=== PATIENT | male | born 1970 | race Caucasian/White ===

== ENCOUNTER 2018-08-29 00:50 | Emergency (ER) | payer SELFPAY ==
[2018-08-29 00:51] VITALS: BMI 39.8
[2018-08-29] MEDS ORDERED: Sodium Chloride 0.9% 2,000 ML IV STA (01:16)
[2018-08-29 01:54] LABS: BASO % 0.2 % (0.0-2.0); EOS % 0.3 % (0.0-4.0); HEMOGLOBIN 14.5 g/dL (12.0-18.0); LYMPH # 0.9 K/uL (1.0-4.3); LYMPH % 8.4 % (20.0-40.0); MEAN CORPUSCULAR HGB CONC 33.4 g/dL (33.0-37.0); MEAN PLATELET VOLUME 7.9 fl (7.2-11.7); MONO # 0.5 K/uL (0.0-0.8); MONO % 4.5 % (0.0-10.0); NEUT # 9.4 K/uL (1.8-7.0); NEUT % 86.6 % (50.0-75.0); PLATELET COUNT 183 K/uL (130-400); RBC 5.17 Mil/uL (4.40-5.90); RED CELL DISTRIBUTION WIDTH 15.7 % (11.5-14.5); WHITE BLOOD COUNT 10.9 K/uL (4.8-10.8)
[2018-08-29 01:57] LABS: VENOUS BLOOD GAS BASE EXCESS 2.2 mmol/L (0.0-2.0); VENOUS BLOOD GAS PCO2 46 mmHg (40-60); VENOUS BLOOD GAS PO2 28 mm/Hg (30-55); VENOUS BLOOD PH 7.39 (7.32-7.43)
[2018-08-29 02:01] LABS: ALB/GLOB RATIO 1.4 (1.0-2.1); ALBUMIN 4.7 g/dL (3.5-5.0); ALT/SGPT 77 U/L (21-72); AST/SGOT 46 U/L (17-59); BLOOD UREA NITROGEN 20 mg/dl (9-20); CALCIUM 8.9 mg/dL (8.4-10.2); GFR NON-AFRICAN AMERICAN > 60
--- NOTE | 2018-08-29 02:24 | ED PDOC ---
HPI: Chest Pain Time Seen by Provider: 08/29/18 01:09 Chief Complaint (Nursing): Chest Pain Chief Complaint (Provider): Chest Pain History Per: Patient History/Exam Limitations: no limitations Onset/Duration Of Symptoms: Days Current Symptoms Are (Timing): Still Present Additional Complaint(s): 48 y/o male with a PMHx of Atrial Fibrillation, HTN, Hypercholesterolemia and Pre-DM presents to the ED for evaluation of chills, myalgia, joint pains, and chest pressure associated with palpitations. On arrival, patient is febrile. Prior to arrival, patient was unaware that he had a fever. Patient denies sick contacts, recent travel, cough, sore throat, abdominal pain, nausea, vomiting and diarrhea. PMD: Dr. Wan Past Medical History Reviewed: Historical Data, Nursing Documentation, Vital Signs Vital Signs: Last Vital Signs Temp 100.6 F H 08/29/18 01:39 Pulse 108 H 08/29/18 01:04 Resp 19 08/29/18 01:04 BP 145/84 08/29/18 01:04 Pulse Ox 96 08/29/18 01:04 Primary Care Provider: Non [facility] Provider, - Medical History PMH: Atrial Fibrillation, Cardia Arrhythmia (aFIB), Diabetes (pre), HTN, Hypercholesterolemia, Sickle Cell Disease (sickle cell trait) Denies: Depression, Chronic Kidney Disease - Surgical History Surgical History: No Surg Hx - Family History Family History: States: Unknown Family Hx - Immunization History Hx Tetanus Toxoid Vaccination: No Hx Influenza Vaccination: No Hx Pneumococcal Vaccination: No - Home Medications Home Medications: Ambulatory Orders Medication Instructions Recorded Aspirin [Aspir 81] 81 mg PO DAILY 02/05/12 Apixaban [Eliquis] 5 mg PO BID #30 tab 05/03/17 Losartan [Cozaar] 100 mg PO DAILY #30 tab 05/03/17 [id number] Ethyl Esters 1 GM 2 gm PO BID #120 sgl 05/03/17 [Lovaza] Pantoprazole [Protonix EC Tab] 20 mg PO 0600,1600 #30 ect 05/03/17 Ursodiol [Actigall] 300 mg PO BID #60 cap 05/03/17 diltiaZEM CD [Cardizem CD] 120 mg PO DAILY #30 c24 05/03/17 - Allergies Allergies/Adverse Reactions: Allergies Allergy/AdvReac Type Severity Reaction Status Date / Time No Known Allergies Allergy Verified 08/29/18 01:06 Review of Systems ROS Statement: Except As Marked, All Systems Reviewed And Found Negative Constitutional: Positive for: Fever, Chills, Other (myalgia, joint pain) ENT: Negative for: Throat Pain Respiratory: Negative for: Cough Gastrointestinal: Negative for: Nausea, Vomiting, Abdominal Pain, Diarrhea Physical Exam - Reviewed Nursing Documentation Reviewed: Yes Vital Signs Reviewed: Yes - Physical Exam Appears: Positive for: No Acute Distress Head Exam: Positive for: ATRAUMATIC, NORMOCEPHALIC Skin: Positive for: Normal Color, Warm, Dry Eye Exam: Positive for: Normal appearance, EOMI, PERRL ENT: Positive for: Normal ENT Inspection Neck: Positive for: Normal, Painless ROM, Supple Cardiovascular/Chest: Positive for: Tachycardia (with regular rhythm) Respiratory: Positive for: Normal Breath Sounds. Negative for: Respiratory Distress Gastrointestinal/Abdominal: Positive for: Other (obese abdomen) Extremity: Positive for: Normal ROM Neurological/Psych: Positive for: Awake, Alert, Symmetric/Intact Strength (x3) - Laboratory Results Result Diagrams: 08/29/18 01:35 08/29/18 01:35 Lab Results: pO2 28 mm/Hg (30-55) L 08/29/18 01:53 VBG pH 7.39 (7.32-7.43) 08/29/18 01:53 VBG pCO2 46 mmHg (40-60) 08/29/18 01:53 VBG HCO3 25.4 mmol/L 08/29/18 01:53 VBG Total CO2 29.2 mmol/L (22-28) H 08/29/18 01:53 VBG O2 Sat (Calc) 56.8 % (40-65) 08/29/18 01:53 VBG Base Excess 2.2 mmol/L (0.0-2.0) H 08/29/18 01:53 VBG Potassium 3.8 mmol/L (3.6-5.2) 08/29/18 01:53 Sodium 138.0 mmol/L (132-148) 08/29/18 01:53 Chloride 102.0 mmol/L (98-107) 08/29/18 01:53 Glucose 148 mg/dL (75-110) H 08/29/18 01:53 Lactate 2.9 mmol/L (0.7-2.1) H 08/29/18 01:53 FiO2 21.0 % 08/29/18 01:53 Total Bilirubin 1.2 mg/dl (0.2-1.3) 08/29/18 01:35 AST 46 U/L (17-59) 08/29/18 01:35 ALT 77 U/L (21-72) H 08/29/18 01:35 Alkaline Phosphatase 94 U/L (38-126) 08/29/18 01:35 Total Protein 8.1 G/DL (6.3-8.2) 08/29/18 01:35 Albumin 4.7 g/dL (3.5-5.0) 08/29/18 01:35 Globulin 3.4 gm/dL (2.2-3.9) 08/29/18 01:35 Albumin/Globulin Ratio 1.4 (1.0-2.1) 08/29/18 01:35 - ECG O2 Sat by Pulse Oximetry: 96 (RA) Pulse Ox Interpretation: Normal Medical Decision Making Medical Decision Making: Time: 0116 A/P: 48 y/o male presenting with a fever of unspecified source. -- Will evaluate for sepsis -- VBG -- CMP -- CBC with Differentials -- CXR Two Views -- Sodium Chloride IV 2000 mls/hr -- Toradol 30 mg IVP -- Tylenol 650 mg PO -- Influenza A B 330 --Patient is feeling much better, no longer febrile --Advised plenty of fluids and rest --Well appearing upon discharge Scribe Attestation: Documented by Brad Sepulveda, acting as a scribe Adrien Germain MD. Provider Scribe Attestation: All medical record entries made by the Scribe were at my direction and personally dictated by me. I have reviewed the chart and agree that the record accurately reflects my personal performance of the history, physical exam, medical decision making, and the department course for this patient. I have also personally directed, reviewed, and agree with the discharge instructions and disposition. Disposition - Clinical Impression Clinical Impression: Viral illness - Patient ED Disposition Is Patient to be Admitted: No Counseled Patient/Family Regarding: Studies Performed, Diagnosis, Need For Followup - Disposition Referrals: Akshat Alonso MD [Staff Provider] - Disposition: Routine/Home Disposition Time: 03:30 Condition: IMPROVED Instructions: Flu, Adult (DC) Forms: [facility] (Portuguese)
[2018-08-29 03:38] VITALS: RESP 16
[2018-08-29 03:45] LABS: ANISOCYTOSIS SLIGHT; BANDS 2 % (0-2); EOSINOPHIL 1 % (0-7); LYMPHOCYTE 9 % (20-50); MONOCYTE 5 % (0-10); NEUTROPHIL 83 % (42-75); OVALOCYTES SLIGHT; PLATELET ESTIMATE NORMAL (NORMAL); SPHEROCYTES SLIGHT; TOTAL CELLS COUNTED 100
[2018-08-29 04:26] VITALS: BP 120/73; PULSE 95; TEMP 98.1
[2018-08-29 05:33] VITALS: O2SAT 96
--- NOTE | 2018-08-29 08:46 | RAD ---
Date of service: 08/29/2018 HISTORY: fever, cp COMPARISON: Chest radiographs 03/13/2009. TECHNIQUE: Chest PA and lateral views FINDINGS: LUNGS: No active pulmonary disease. PLEURA: No significant pleural effusion identified. No pneumothorax apparent. CARDIOVASCULAR: No aortic atherosclerotic calcification present. Normal cardiac size. No pulmonary vascular congestion. OSSEOUS STRUCTURES: No significant abnormalities. VISUALIZED UPPER ABDOMEN: Mammilated right hemidiaphragm. OTHER FINDINGS: None. IMPRESSION: No significant interval cardiopulmonary disease appreciable.
== END 2018-08-29 04:31 | disposition home or self-care (01) ==
LOC: H.ER 00:50
DX: B34.9 Viral infection, unspecified (principal); I10 Essential (primary) hypertension; D57.3 Sickle-cell trait; Z79.899 Other long term (current) drug therapy
CPT/HCPCS: 71046; 80053; 82803; 84484; 85025; 87804; 96361; 96374; 99285; J1885; J7030

== ENCOUNTER 2018-09-18 07:49 | Observation (INO) | payer MEDICAID, OTHER ==
[2018-09-18 07:50] VITALS: BMI 39.8
--- NOTE | 2018-09-18 09:02 | ED PDOC ---
HPI: Chest Pain Time Seen by Provider: 09/18/18 08:02 Chief Complaint (Nursing): Chest Pain Chief Complaint (Provider): Chest Pain History Per: Patient History/Exam Limitations: no limitations Onset/Duration Of Symptoms: Days (x3) Current Symptoms Are (Timing): Still Present Additional Complaint(s): Patient is a 48 y/o male with an extensive PMHx including atrial fibrillation who presents to the ED for evaluation of worsening chest tightness for the past three days. Patient claims he has been coughing and wheezing a lot so he has been taking Cipro and using an inhaler with minimal relief. Furthermore, patient complains of sweats associated with cough. Patient was told by primary to stop taking Eliquis and to continue taking Cardizem for atrial fibrillation, however, patient indicated he has not been doing so. Patient denies abdominal pain. PCP: Dr. Akshat Alonso Past Medical History Reviewed: Historical Data, Nursing Documentation, Vital Signs Vital Signs: Last Vital Signs Temp 98.4 F 09/18/18 07:59 Pulse 82 09/18/18 07:59 Resp 18 09/18/18 07:59 BP 157/82 H 09/18/18 07:59 Pulse Ox 96 09/18/18 07:59 Primary Care Provider: Akshat Alonso - Medical History PMH: Atrial Fibrillation, Cardia Arrhythmia (aFIB), Diabetes (pre), Gastritis, HTN, Hypercholesterolemia, Sickle Cell Disease (sickle cell trait) Denies: Depression, Chronic Kidney Disease - Surgical History Surgical History: Other surgeries: hernia repair - Family History Family History: States: Unknown Family Hx - Social History Current smoker - smoking cessation education provided: No Ex-Smoker (has not smoked in the last 12 months): No - Immunization History Hx Tetanus Toxoid Vaccination: No Hx Influenza Vaccination: No Hx Pneumococcal Vaccination: No - Home Medications Home Medications: Ambulatory Orders Medication Instructions Recorded Aspirin [Aspirin EC] 325 mg PO DAILY 09/18/18 - Allergies Allergies/Adverse Reactions: Allergies Allergy/AdvReac Type Severity Reaction Status Date / Time No Known Allergies Allergy Verified 08/29/18 01:06 Review of Systems ROS Statement: Except As Marked, All Systems Reviewed And Found Negative Constitutional: Positive for: Sweats Cardiovascular: Positive for: Chest Pain (tightness), Other (atrial fibrillation) Respiratory: Positive for: Cough, Wheezing Gastrointestinal: Negative for: Abdominal Pain Physical Exam - Reviewed Nursing Documentation Reviewed: Yes Vital Signs Reviewed: Yes - Physical Exam Appears: Positive for: No Acute Distress Head Exam: Positive for: ATRAUMATIC, NORMAL INSPECTION, NORMOCEPHALIC Skin: Positive for: Normal Color, Warm, DRY Eye Exam: Positive for: EOMI, Normal appearance, PERRL Neck: Positive for: Normal, Painless ROM, Supple Cardiovascular/Chest: Positive for: Tachycardia, Other (atrial fibrillation) Respiratory: Positive for: Normal Breath Sounds. Negative for: Wheezing, Respiratory Distress Gastrointestinal/Abdominal: Positive for: Normal Exam, Soft. Negative for: Tenderness Back: Positive for: Normal Inspection. Negative for: L CVA Tenderness, R CVA Tenderness Extremity: Positive for: Normal ROM. Negative for: Pedal Edema, Deformity Neurological/Psych: Positive for: Awake, Alert, Oriented (x3) - Laboratory Results Result Diagrams: 09/18/18 08:53 09/18/18 08:53 - ECG ECG Rhythm: Positive for: Normal QRS, Atrial Fibrillation (with RVR). Negative for: ST/T Changes Rate: 121 O2 Sat by Pulse Oximetry: 96 (RA) Pulse Ox Interpretation: Normal Medical Decision Making Medical Decision Making: Time: 833 Impression: Chest Tightness DDx includes but not limited to CHF exacerbation and atrial fibrillation with RVR; r/o PNA. Plan: EKG BNP BMP Troponin I CBC PTT Prothrombin Time CXR Cardizem 20 mg IVP Blade Grinder IV Insertion Time: 957 FINDINGS: LUNGS: Clear. PLEURA: No pneumothorax or pleural fluid seen. CARDIOVASCULAR: No aortic atherosclerotic calcification present. Normal. OSSEOUS STRUCTURES: No significant abnormalities. VISUALIZED UPPER ABDOMEN: Normal. OTHER FINDINGS: None. IMPRESSION: No active disease. ------ Scribe Attestation: Documented by Dalton Nuñez, acting as a scribe Jesus Montesinos MD. Provider Scribe Attestation: All medical record entries made by the Dionicio were at my direction and personally dictated by me. I have reviewed the chart and agree that the record accurately reflects my personal performance of the history, physical exam, medical decision making, and the department course for this patient. I have also personally directed, reviewed, and agree with the discharge instructions and disposition. Disposition - Disposition
[2018-09-18 09:08] LABS: PROTHROMBIN TIME 11.3 Seconds (9.8-13.1)
[2018-09-18 09:11] LABS: PARTIAL THROMBOPLASTIN TIME 31.9 Seconds (25.6-37.1)
[2018-09-18 09:16] LABS: BASO % 0.5 % (0.0-2.0); EOS # 0.3 K/uL (0.0-0.7); EOS % 2.9 % (0.0-4.0); LYMPH # 2.8 K/uL (1.0-4.3); LYMPH % 29.1 % (20.0-40.0); MEAN CELL VOLUME 83.5 fl (80.0-94.0); MEAN CORPUSCULAR HEMOGLOBIN 28.5 pg (27.0-31.0); MEAN CORPUSCULAR HGB CONC 34.1 g/dL (33.0-37.0); MEAN PLATELET VOLUME 8.4 fl (7.2-11.7); MONO # 0.7 K/uL (0.0-0.8); NEUT # 5.8 K/uL (1.8-7.0); NEUT % 60.5 % (50.0-75.0); NRBC % 0.2 % (0.0-0.0); RBC 5.26 Mil/uL (4.40-5.90); RED CELL DISTRIBUTION WIDTH 15.2 % (11.5-14.5); WHITE BLOOD COUNT 9.6 K/uL (4.8-10.8)
[2018-09-18 09:17] LABS: BLOOD UREA NITROGEN 12 mg/dl (9-20); CALCIUM 8.9 mg/dL (8.4-10.2); GFR NON-AFRICAN AMERICAN > 60
[2018-09-18 09:21] LABS: B-TYPE NATRIURETIC PEPTIDE 23.9 pg/ml (0-450)
[2018-09-18] MEDS ORDERED: Enoxaparin 150 mg Syringe SC STA (09:28)
--- NOTE | 2018-09-18 10:02 | RAD ---
Date of service: 09/18/2018 PROCEDURE: CHEST RADIOGRAPH, 1 VIEW HISTORY: dyspnea COMPARISON: None available. FINDINGS: LUNGS: Clear. PLEURA: No pneumothorax or pleural fluid seen. CARDIOVASCULAR: No aortic atherosclerotic calcification present. Normal. OSSEOUS STRUCTURES: No significant abnormalities. VISUALIZED UPPER ABDOMEN: Normal. OTHER FINDINGS: None. IMPRESSION: No active disease.
--- NOTE | 2018-09-18 10:36 | CP.PCM.HP ---
<Ciera Jones - Last Filed: 09/18/18 11:51> History of Present Illness - History of Present Illness History of Present Illness: 48 y/o M with pmhx of atrial fibrillation, HTN, [place] & CVA x2 presented to the ED with complaints of constant anterior chest tightness that began last night. He reports chest tightness was accompanied by some lightheadedness, but denied any fever, chills, diaphoresis, dizziness, sob or palpitations. He also endorses having a nonproductive cough that began 2-3 days ago, which has been accompanied by wheezing. Of note, he has only been taking Aspirin and reports noncompliance with other medications because of nausea & lightheadedness experienced while taking them. PMD: Dr Alonso PMH: atrial fibrillation, HTN, [place] (age 28) & CVA x2 (2000, 2001) Meds: Aspirin 325mg PO QD; Cardizem, HCTZ, Eliquis- non taking Allergies : NKA PSH: Hernia repair (6 yrs ago) FH: Mother- [place] s/p stent; grandmother-[place] Sochx: denies EtOH, tobacco or elicit drug use ROS: all 12 point reviewed and negative unless otherwise mentioned in HPI ED Course: VS: BP-157/82 P-117 spo2- 96% on room air RR-18 Temp Labs: cbc, chemistry, coag studies-unremarkable, and troponin- negative S/p: diltiazem 20mg IVP once, lovenox 150 mg SC once -On diltiazem 125mls, 5ml/hr now Present on Admission - Present on Admission Any Indicators Present on Admission: No Past Patient History - Infectious Disease Hx of Infectious Diseases: None - Tetanus Immunizations Tetanus Immunization: Unknown - Past Social History Smoking Status: Never Smoked - CARDIAC Hx Atrial Fibrillation: Yes Hx Cardia Arrhythmia: Yes (aFIB) Hx Hypercholesterolemia: Yes Hx Hypertension: Yes - PULMONARY Hx Respiratory Disorders: No - NEUROLOGICAL HX Cerebrovascular Accident: Yes (2000 no deficits as per pt) - HEENT Hx HEENT Problems: No - RENAL Hx Chronic Kidney Disease: No - ENDOCRINE/METABOLIC Hx Endocrine Disorders: No - HEMATOLOGICAL/ONCOLOGICAL Hx Sickle Cell Disease: Yes (sickle cell trait) - INTEGUMENTARY Hx Dermatological Problems: Yes Other/Comment: multiple tatoos - MUSCULOSKELETAL/RHEUMATOLOGICAL Hx Falls: No - GASTROINTESTINAL Hx Gastritis: Yes - GENITOURINARY/GYNECOLOGICAL Hx Genitourinary Disorders: No - PSYCHIATRIC Hx Depression: No - SURGICAL HISTORY Hx Surgeries: Yes - ANESTHESIA Hx Anesthesia: Yes Hx Anesthesia Reactions: No Hx Malignant Hyperthermia: No Meds Allergies/Adverse Reactions: Allergies Allergy/AdvReac Type Severity Reaction Status Date / Time No Known Allergies Allergy Verified 08/29/18 01:06 Physical Exam - Constitutional Appears: Non-toxic Additional comments: obese male sitting upright, in no acute distress, eating - Head Exam Head Exam: ATRAUMATIC - Eye Exam Eye Exam: PERRL - ENT Exam ENT Exam: Mucous Membranes Moist - Neck Exam Neck exam: Negative for: Lymphadenopathy - Respiratory Exam Respiratory Exam: Clear to Auscultation Bilateral. absent: Respiratory Distress - Cardiovascular Exam Cardiovascular Exam: Irregular Rhythm - GI/Abdominal Exam GI & Abdominal Exam: Soft. absent: Guarding, Rebound, Rigid, Tenderness - Neurological Exam Neurological exam: Alert, CN II-XII Intact, Oriented x3 - Psychiatric Exam Psychiatric exam: Normal Mood - Skin Skin Exam: Dry Results - Vital Signs Recent Vital Signs: Last Vital Signs Temp 98.4 F 09/18/18 07:59 Pulse 121 H 09/18/18 10:11 Resp 18 09/18/18 09:09 BP 128/78 09/18/18 09:09 Pulse Ox 96 09/18/18 10:11 - Labs Result Diagrams: 09/18/18 08:53 09/18/18 08:53 Labs: Laboratory Results - last 24 hr 09/18/18 09/18/18 09/18/18 08:53 08:53 08:53 WBC 9.6 RBC 5.26 Hgb 15.0 Hct 43.9 MCV 83.5 MCH 28.5 MCHC 34.1 RDW 15.2 H Plt Count 190 MPV 8.4 Neut % (Auto) 60.5 Lymph % (Auto) 29.1 [place] % (Auto) 7.0 Eos % (Auto) 2.9 Baso % (Auto) 0.5 Neut # (Auto) 5.8 Lymph # (Auto) 2.8 [place] # (Auto) 0.7 Eos # (Auto) 0.3 Baso # (Auto) 0.0 PT 11.3 INR 1.0 APTT 31.9 Sodium 143 Potassium 3.7 Chloride 103 Carbon Dioxide 27 Anion Gap 17 BUN 12 Creatinine 0.9 Est GFR ( Amer) > 60 Est GFR (Non-Af Amer) > 60 Random Glucose 133 H Calcium 8.9 Troponin I < 0.0120 NT-Pro-B Natriuret Pep 23.9 Assessment & Plan - Assessment and Plan (Free Text) Assessment: A/P: 48 y/o M with pmhx of atrial fibrillation, HTN, [place] & CVA x2 admitted for further evaluation of chest tightness. Afib with RVR - EKG: HR 121, afib with RVR - S/pdiltiazem 20mg IVP once in ED, lovenox 150 mg SC once in ED -On diltiazem 125mls, 5ml/hr now - Tele monitoring - Cardio consulted, Dr. Villatoro, f/u recs - Cont to monitor Chest tightness, r/o ACS - Initial trop neg, f/u serial trops - F/u lipid panel, tsh, A1C, bmp -On lovenox 150mg BID Hx of CAD -C/w ASA 325mg po qd GI prophylaxis -Protonix 40mg QD DVT prophylaxis -On lovenox 150mg BID <Seb Correia D - Last Filed: 09/18/18 14:26> Results - Vital Signs Recent Vital Signs: Last Vital Signs Temp 98.2 F 09/18/18 12:34 Pulse 91 H 09/18/18 12:34 Resp 20 09/18/18 12:34 BP 158/93 H 09/18/18 12:34 Pulse Ox 94 L 09/18/18 12:34 - Labs Result Diagrams: 09/18/18 08:53 09/18/18 08:53 Labs: Laboratory Results - last 24 hr 09/18/18 09/18/18 09/18/18 08:53 08:53 08:53 WBC 9.6 RBC 5.26 Hgb 15.0 Hct 43.9 MCV 83.5 MCH 28.5 MCHC 34.1 RDW 15.2 H Plt Count 190 MPV 8.4 Neut % (Auto) 60.5 Lymph % (Auto) 29.1 [place] % (Auto) 7.0 Eos % (Auto) 2.9 Baso % (Auto) 0.5 Neut # (Auto) 5.8 Lymph # (Auto) 2.8 [place] # (Auto) 0.7 Eos # (Auto) 0.3 Baso # (Auto) 0.0 PT 11.3 INR 1.0 APTT 31.9 Sodium 143 Potassium 3.7 Chloride 103 Carbon Dioxide 27 Anion Gap 17 BUN 12 Creatinine 0.9 Est GFR ( Amer) > 60 Est GFR (Non-Af Amer) > 60 Random Glucose 133 H Calcium 8.9 Troponin I < 0.0120 NT-Pro-B Natriuret Pep 23.9 Attending/Attestation - Attestation I have personally seen and examined this patient.: Yes I have fully participated in the care of the patient.: Yes I have reviewed all pertinent clinical information: Yes Notes (Text): 09/18/18 14:24 Patient seen and examined with resident. Case discussed and agreed with assessment and plan of management.
--- NOTE | 2018-09-18 17:43 | CP.PCM.CON ---
Past Patient History - Infectious Disease Hx of Infectious Diseases: None - Tetanus Immunizations Tetanus Immunization: Unknown - Past Social History Smoking Status: Never Smoked - CARDIAC Hx Atrial Fibrillation: Yes Hx Cardia Arrhythmia: Yes (aFIB) Hx Hypercholesterolemia: Yes Hx Hypertension: Yes - PULMONARY Hx Respiratory Disorders: No - NEUROLOGICAL HX Cerebrovascular Accident: Yes (2000 no deficits as per pt) - HEENT Hx HEENT Problems: No - RENAL Hx Chronic Kidney Disease: No - ENDOCRINE/METABOLIC Hx Endocrine Disorders: No - HEMATOLOGICAL/ONCOLOGICAL Hx Sickle Cell Disease: Yes (sickle cell trait) - INTEGUMENTARY Hx Dermatological Problems: Yes Other/Comment: multiple tatoos - MUSCULOSKELETAL/RHEUMATOLOGICAL Hx Falls: No - GASTROINTESTINAL Hx Gastritis: Yes - GENITOURINARY/GYNECOLOGICAL Hx Genitourinary Disorders: No - PSYCHIATRIC Hx Depression: No - SURGICAL HISTORY Hx Surgeries: Yes - ANESTHESIA Hx Anesthesia: Yes Hx Anesthesia Reactions: No Hx Malignant Hyperthermia: No Meds Home Medications: Home Medication List Medication Instructions Recorded Confirmed Type Diltiazem HCl [Cardizem] 30 mg PO QID #120 tablet 09/19/18 Rx Allergies/Adverse Reactions: Allergies Allergy/AdvReac Type Severity Reaction Status Date / Time No Known Allergies Allergy Verified 08/29/18 01:06 - Medications Medications: Current Medications Aspirin (Aspirin) 325 mg PO DAILY [facility] Last Admin: 09/18/18 10:40 Dose: 325 mg Diltiazem HCl (Cardizem) 30 mg PO QID [facility] Last Admin: 09/18/18 16:29 Dose: 30 mg Docusate Sodium (Colace Liquid) 100 mg NG BID PRN PRN Reason: Constipation Enoxaparin Sodium (Lovenox) 150 mg SC Q12 [facility]; Protocol Nitroglycerin (Nitrostat Sl Tab) 0.4 mg SL Q5M PRN PRN Reason: chest pain Pantoprazole Sodium (Protonix Ec Tab) 40 mg PO DAILY [facility] Results - Vital Signs Recent Vital Signs: Last Vital Signs Temp 98.1 F 09/18/18 16:54 Pulse 87 09/18/18 16:54 Resp 18 09/18/18 16:54 BP 153/84 H 09/18/18 16:54 Pulse Ox 95 09/18/18 16:54 - Labs Result Diagrams: 09/19/18 04:45 09/19/18 04:45 Labs: Laboratory Results - last 24 hr 09/18/18 09/18/18 09/18/18 08:53 08:53 08:53 WBC 9.6 RBC 5.26 Hgb 15.0 Hct 43.9 MCV 83.5 MCH 28.5 MCHC 34.1 RDW 15.2 H Plt Count 190 MPV 8.4 Neut % (Auto) 60.5 Lymph % (Auto) 29.1 [place] % (Auto) 7.0 Eos % (Auto) 2.9 Baso % (Auto) 0.5 Neut # (Auto) 5.8 Lymph # (Auto) 2.8 [place] # (Auto) 0.7 Eos # (Auto) 0.3 Baso # (Auto) 0.0 PT 11.3 INR 1.0 APTT 31.9 Sodium 143 Potassium 3.7 Chloride 103 Carbon Dioxide 27 Anion Gap 17 BUN 12 Creatinine 0.9 Est GFR ( Amer) > 60 Est GFR (Non-Af Amer) > 60 Random Glucose 133 H Calcium 8.9 Troponin I < 0.0120 NT-Pro-B Natriuret Pep 23.9 Assessment & Plan (1) PAF (paroxysmal atrial fibrillation) Status: Acute (2) Palpitations Status: Acute (3) Snoring Status: Acute - Assessment and Plan (Free Text) Plan: pt has afib episodes about 1 x every 2 years (per pt). He takes asa only at home. he is obese and per his partner he does have signs of apnea while sleeping. Pt needs a sleep study as outpt. Pt currently in sr. may go home on asa 325 mg daily. He should fu in resident clinic and have a event monitor placed to eval for asymptomatic runs of afib.
--- NOTE | 2018-09-18 19:25 | CARD ---
APPROVED REPORT Date of service: 09/18/2018 EXAM: Two-dimensional and M-mode echocardiogram with Doppler and color Doppler. Other Information Quality : GoodRhythm : NSR INDICATION Atrial Fibrillation 2D DIMENSIONS IVSd1.98 (0.7-1.1cm)LVDd5.05 (3.9-5.9cm) PWd0.72 (0.7-1.1cm)IVSs2.24 (0.8-1.2cm) LA Kbjpgh28 (18-58mL)LVDs2.77 (2.5-4.0cm) FS (%) 45.2 %PWs1.15 (0.8-1.2cm) M-Mode DIMENSIONS Left Atrium (MM)4.76 (2.5-4.0cm)Aortic Root3.32 (2.2-3.7cm) Aortic Cusp Exc.2.36 (1.5-2.0cm) Aortic Valve AoV Peak Hfllfjpv437.2cm/sAoV VTI20.5cmAO Peak GR.7mmHg LVOT Peak Omdwcmjl48.0cm/sLVOT VTI15.15cmAO Mean GR.4mmHg Mitral Valve MV E Shgxomda78.8cm/sMV DECEL [id number] A Niisizrd94.8cm/s MV QCC88elN/A ratio0.7MVA (PHT)3.16cm2 TDI Lateral E' Peak V10.51cm/sMedial E' Peak V6.68cm/sE/Lateral E'5.4 E/Medial E'8.5 Pulmonary Valve PV Peak Cyqvqqjc778.6cm/s Tricuspid Valve TR Peak Udewrjjf113ty/sTR Peak Gr.68dgBhDTCX67yoRl LEFT VENTRICLE The left ventricle is normal size. There is borderline to mild concentric left ventricular hypertrophy. The left ventricular systolic function is normal. The estimated ejection fraction is 55-60% No regional wall motion abnormalities noted.. Transmitral Doppler flow pattern is Grade I-abnormal relaxation pattern. No left ventricle thrombus noted on this study. There is no ventricular septal defect visualized. There is no left ventricular aneurysm. There is no mass noted in the left ventricle. RIGHT VENTRICLE The right ventricle is normal size. There is normal right ventricular wall thickness. The right ventricular systolic function is normal. ATRIA The left atrium is mildly dilated. The right atrium size is normal. The interatrial septum is intact with no evidence for an atrial septal defect. AORTIC VALVE The aortic valve is normal in structure. No aortic regurgitation is present. There is no aortic valvular stenosis. There is no aortic valvular vegetation. MITRAL VALVE The mitral valve is normal in structure. There is no evidence of mitral valve prolapse. There is no mitral valve stenosis. There is no mitral valve regurgitation noted. TRICUSPID VALVE The tricuspid valve is normal in structure. There is mild tricuspid valve regurgitation noted. RVSP is calculated at 27 mm Hg. There is no tricuspid valve prolapse or vegetation. There is no tricuspid valve stenosis. PULMONIC VALVE The pulmonary valve is normal in structure. There is trace pulmonic valvular regurgitation. There is no pulmonic valvular stenosis. GREAT VESSELS The aortic root is normal in size. The ascending aorta is normal in size. The pulmonary artery is normal. The IVC is normal in size and collapses >50% with inspiration. PERICARDIAL EFFUSION There is no pericardial effusion. There is no pleural effusion. <Conclusion> There is borderline to mild concentric left ventricular hypertrophy. The estimated ejection fraction is 55-60% Transmitral Doppler flow pattern is Grade I-abnormal relaxation pattern. The left atrium is mildly dilated. There is mild tricuspid valve regurgitation noted. RVSP is calculated at 27 mm Hg.
[2018-09-18] MEDS: Enoxaparin 150 mg Syringe SC SCH (21:34)
[2018-09-19 06:51] LABS: EOS % 12.5 % (0.0-4.0); HEMOGLOBIN 14.4 g/dL (12.0-18.0); LYMPH # 4.2 K/uL (1.0-4.3); MEAN CELL VOLUME 84.9 fl (80.0-94.0); MEAN CORPUSCULAR HEMOGLOBIN 28.7 pg (27.0-31.0); MEAN CORPUSCULAR HGB CONC 33.8 g/dL (33.0-37.0); MEAN PLATELET VOLUME 8.5 fl (7.2-11.7); MONO % 12.5 % (0.0-10.0); NEUT # 2.1 K/uL (1.8-7.0); NRBC % 0.1 % (0.0-0.0); RBC 5.01 Mil/uL (4.40-5.90); RED CELL DISTRIBUTION WIDTH 15.3 % (11.5-14.5); WHITE BLOOD COUNT 8.4 K/uL (4.8-10.8)
[2018-09-19 07:00] LABS: ALB/GLOB RATIO 1.3 (1.0-2.1); ALBUMIN 4.5 g/dL (3.5-5.0); ALT/SGPT 76 U/L (21-72); AST/SGOT 51 U/L (17-59); BLOOD UREA NITROGEN 17 mg/dl (9-20); CALCIUM 9.4 mg/dL (8.4-10.2); GFR NON-AFRICAN AMERICAN > 60; HDL CHOLESTEROL 19 MG/DL (30-70)
[2018-09-19 07:02] LABS: LDL CHOLESTEROL 66 mg/dL (0-129)
[2018-09-19 08:22] VITALS: BP 149/88; PULSE 85; TEMP 98.7
[2018-09-19] MEDS ORDERED: Pantoprazole 40 mg EC Tab PO SCH (09:00)
[2018-09-19] MEDS: Enoxaparin 150 mg Syringe SC SCH (09:16)
[2018-09-19 09:17] VITALS: RESP 18; O2SAT 100
--- NOTE | 2018-09-19 10:02 | CARD ---
APPROVED REPORT Date of service: 09/18/2018 EKG Measurement Heart [id number] <Conclusion> Atrial fibrillation with rapid ventricular response Abnormal ECG
--- NOTE | 2018-09-19 10:42 | CP.PCM.DIS ---
Provider - Provider Date of Admission: 09/18/18 09:19 Attending physician: Nathalia Booth MD Consults: 09/18/18 10:28 Cardiology Consult Routine Comment: Consulting Provider: Mira Villatoro Consulting Physician: Mira Villatoro Reason for Consult: AFib with RVR 09/18/18 12:09 Social Work Referral Routine Comment: Routine Physician Instructions: Reason For Exam: Routine Time Spent in preparation of Discharge (in minutes): 25 Diagnosis - Discharge Diagnosis (1) Atrial fibrillation with RVR Status: Resolved Comment: continue Cardizem 30mg PO QID. Eliquis 5mg PO BID (2) HTN (hypertension) Status: Chronic Comment: BP stable. continue [facility] Course - Lab Results Lab Results: Most Recent Lab Values WBC 8.4 K/uL (4.8-10.8) 09/19/18 04:45 RBC 5.01 Mil/uL (4.40-5.90) 09/19/18 04:45 Hgb 14.4 g/dL (12.0-18.0) 09/19/18 04:45 Hct 42.5 % (35.0-51.0) 09/19/18 04:45 MCV 84.9 fl (80.0-94.0) 09/19/18 04:45 MCH 28.7 pg (27.0-31.0) 09/19/18 04:45 MCHC 33.8 g/dL (33.0-37.0) 09/19/18 04:45 RDW 15.3 % (11.5-14.5) H 09/19/18 04:45 Plt Count 195 K/uL (130-400) 09/19/18 04:45 MPV 8.5 fl (7.2-11.7) 09/19/18 04:45 Neut % (Auto) 25.0 % (50.0-75.0) L 09/19/18 04:45 Lymph % (Auto) 50.0 % (20.0-40.0) H 09/19/18 04:45 [place] % (Auto) 12.5 % (0.0-10.0) H 09/19/18 04:45 Eos % (Auto) 12.5 % (0.0-4.0) H 09/19/18 04:45 Baso % (Auto) 0.0 % (0.0-2.0) 09/19/18 04:45 Neut # (Auto) 2.1 K/uL (1.8-7.0) 09/19/18 04:45 Lymph # (Auto) 4.2 K/uL (1.0-4.3) 09/19/18 04:45 [place] # (Auto) 1.0 K/uL (0.0-0.8) H 09/19/18 04:45 Eos # (Auto) 1.0 K/uL (0.0-0.7) H 09/19/18 04:45 Baso # (Auto) 0.0 K/uL (0.0-0.2) 09/19/18 04:45 PT 11.3 Seconds (9.8-13.1) 09/18/18 08:53 INR 1.0 09/18/18 08:53 APTT 31.9 Seconds (25.6-37.1) 09/18/18 08:53 Sodium 140 mmol/l (132-148) 09/19/18 04:45 Potassium 3.6 MMOL/L (3.6-5.0) 09/19/18 04:45 Chloride 100 mmol/L (98-107) 09/19/18 04:45 Carbon Dioxide 31 mmol/L (22-30) H 09/19/18 04:45 Anion Gap 13 (10-20) 09/19/18 04:45 BUN 17 mg/dl (9-20) 09/19/18 04:45 Creatinine 1.0 mg/dl (0.8-1.5) 09/19/18 04:45 Est GFR ( Amer) > 60 09/19/18 04:45 Est GFR (Non-Af Amer) > 60 09/19/18 04:45 Random Glucose 129 mg/dL (75-110) H 09/19/18 04:45 Calcium 9.4 mg/dL (8.4-10.2) 09/19/18 04:45 Total Bilirubin 0.6 mg/dl (0.2-1.3) 09/19/18 04:45 AST 51 U/L (17-59) 09/19/18 04:45 ALT 76 U/L (21-72) H 09/19/18 04:45 Alkaline Phosphatase 119 U/L (38-126) 09/19/18 04:45 Troponin I < 0.0120 ng/mL (0.00-0.120) 09/18/18 17:50 NT-Pro-B Natriuret Pep 23.9 pg/ml (0-450) 09/18/18 08:53 Total Protein 8.0 G/DL (6.3-8.2) 09/19/18 04:45 Albumin 4.5 g/dL (3.5-5.0) 09/19/18 04:45 Globulin 3.5 gm/dL (2.2-3.9) 09/19/18 04:45 Albumin/Globulin Ratio 1.3 (1.0-2.1) 09/19/18 04:45 Triglycerides 518 mg/DL (0-149) H 09/19/18 04:45 Cholesterol 149 mg/dL (0-199) 09/19/18 04:45 LDL Cholesterol Direct 66 mg/dL (0-129) 09/19/18 04:45 HDL Cholesterol 19 MG/DL (30-70) L 09/19/18 04:45 TSH 3rd Generation 0.97 mIU/ML (0.46-4.68) 09/19/18 04:45 - Hospital Course Hospital Course: 48 yo male with history of Paroxysmal AFib, HTN, CAD and CVA was admitted because of chest tightness accompanied with palpitation. EKG showed AFib with RVR. Patient was put on Cardizem drip and felt better after his rhythm converted into sinus. Work ups which included ECHO and serial Troponins were within normal limits. Cardiology consult with Dr Villatoro was also called. Patient today was discharged in stable condition and sent home on PO Cardizem, Eliquis and ASA. He will follow up with his PCP in a week. Discharge Exam - Head Exam Head Exam: ATRAUMATIC - Eye Exam Eye Exam: absent: Scleral icterus - ENT Exam ENT Exam: Mucous Membranes Moist - Respiratory Exam Respiratory Exam: absent: Rales, Rhonchi, Wheezes, Respiratory Distress - Cardiovascular Exam Cardiovascular Exam: REGULAR RHYTHM, +S1, +S2 - GI/Abdominal Exam GI & Abdominal Exam: Soft. absent: Tenderness - Rectal Exam Rectal Exam: Deferred - Neurological Exam Neurological exam: Alert, Oriented x3 - Psychiatric Exam Psychiatric exam: Normal Affect - Skin Skin Exam: Dry, Intact Discharge Plan - Discharge Medications Prescriptions: Apixaban [Eliquis] 5 mg PO BID #60 tablet Diltiazem HCl [Cardizem] 30 mg PO QID #120 tablet - Follow Up Plan Condition: GOOD Disposition: HOME/ ROUTINE
== END 2018-09-19 12:00 | disposition home or self-care (01) ==
LOC: H.ER 07:49 → H.ERHOLD 09:19 → H.TEL 11:41
PROVIDERS: ADMIT Internal Medicine; ATTEND Internal Medicine
DX: I48.0 Paroxysmal atrial fibrillation (principal); R07.89 Other chest pain; D57.1 Sickle-cell disease without crisis; I10 Essential (primary) hypertension; I25.10 Atherosclerotic heart disease of native coronary artery without angina pectoris; E78.00 Pure hypercholesterolemia, unspecified; E66.9 Obesity, unspecified; Z68.41 Body mass index [BMI] 40.0-44.9, adult; K29.70 Gastritis, unspecified, without bleeding; Z91.19 Patient's noncompliance with other medical treatment and regimen; Z86.73 Personal history of transient ischemic attack (TIA), and cerebral infarction without residual deficits
CPT/HCPCS: 36415; 71045; 80048; 80053; 80061; 83036; 83880; 84443; 84484; 85025; 85610; 85730; 93005; 93306; 96372; 96374; 99285; G0378; J1650